=== PATIENT | female | born 1975 | race Caucasian/White ===

== ENCOUNTER → 2019-08-22 12:34 | Outpatient (BNVA) | payer MEDICAID, SELFPAY | PROVIDERS: Family Provider Family Medicine; PCP Family Medicine; Visit Provider Counselor Professional | DX: F33.1 Major depressive disorder, recurrent, moderate (principal); F41.1 Generalized anxiety disorder | CPT/HCPCS: 90834 ==

== ENCOUNTER → 2020-11-12 10:04 | Outpatient (BNVA) | payer MEDICAID, SELFPAY | PROVIDERS: Family Provider Family Medicine; PCP Family Medicine; Visit Provider Registered Nurse | DX: Z79.899 Other long term (current) drug therapy (principal) | CPT/HCPCS: 36415; 80061; 83036 ==

== ENCOUNTER 2020-12-29 21:45 | Emergency (ER) | payer MEDICAID, SELFPAY ==
[2020-12-29 22:06] VITALS: BP 147/90; PULSE 69; RESP 18; TEMP 37; O2SAT 97; BMI 47.0
--- NOTE | 2020-12-29 22:17 | XRR_ITS ---
PROCEDURE INFORMATION: Exam: XR Chest Exam date and time: 12/29/2020 10:17 PM Age: 45 years old Clinical indication: Cough and shortness of breath; Patient HX: Worsening cough and SOB. TECHNIQUE: Imaging protocol: XR of the chest. Views: 1 view. COMPARISON: No relevant prior studies available. FINDINGS: Lungs: Lungs are clear bilaterally. Pleural spaces: No pleural effusion. No pneumothorax. Heart/Mediastinum: The cardiac silhouette and mediastinal contours are unremarkable. Bones/joints: Unremarkable for age. XR/XR chest 1V portable [id number] IMPRESSION: No acute cardiopulmonary process.
[2020-12-29 22:30] VITALS: O2SAT 98
--- NOTE | 2020-12-29 22:48 | W.ED.COVID ---
HPI - COVID General: Chief Complaint: COVID symptoms Stated Complaint: FEELS LIKE NOT GETTING ENOUGH AIR, ASTHMA Time Seen by Provider: 12/29/20 22:17 Source: patient Mode of arrival: ambulatory Limitations: no limitations Triage information: Has fever, cough or shortness of breath. Exposure to COVID + person last 14 days History of Present Illness: HPI Narrative: 45-year-old female states over the last 2 to 3 days she has been having cough along with some body aches chills and low-grade fevers. States she also had a mild headache. She states she is concerned she may have Covid. Patient here is resting comfortably not requiring any oxygen. Denies any worsening improving factors. Said no vomiting or diarrhea. COVID 19 common symptoms: positive non-productive cough, dyspnea and body aches; negative fever(s), chills, headache(s), throat pain, nausea, vomiting or diarrhea COVID 19 other sytmptoms: negative chest pain COVID Results: SARS-CoV-2 Antigen (Rapid) Positive (Negative) H 12/29/20 23:35 12/29/20 Review of Systems Const: Reports: body aches; Denies: fever(s), chills or change in appetite Eyes: Denies: blurry vision or eye discomfort ENMT: Denies: throat pain or dental pain Card: Denies: chest pain Resp: Reports: dyspnea and non-productive cough GI: Denies: abdominal pain, nausea, vomiting or diarrhea : Denies: dysuria Musc: Denies: neck pain or back pain Skin/Breast: Denies: rash Neuro: Denies: headache(s) Psych: Denies: depression Ronaldo/Lymph: Denies: easy bruising All/Imm: Denies: urticaria [facility] PFSH: Medical History (Updated 12/30/20 @ 00:27 by Mona Wright MD) Excoriation (skin-picking) disorder Generalized anxiety disorder Major depressive disorder, recurrent, moderate Physical Exam Const: COMMON NORMALS: no acute distress, patient oriented x3 and healthy appearing HENMT: COMMON NORMALS: normocephalic and atraumatic HEAD & SCALP: normocephalic and atraumatic Eye: COMMON NORMALS: Equal, round and reactive pupils present and EOMs intact bilaterally PUPIL: Yes Equal, round and reactive pupils present Neck/C-Spine: COMMON NORMALS: full ROM and supple Chest: COMMONS NORMALS: normal inspection of the chest and normal palpation of entire chest wall Resp: COMMON NORMALS: normal respiratory effort, No retractions, No use of accessory muscles and clear to auscultation bilaterally AUSCULTATION: clear to auscultation bilaterally Cardio: COMMON NORMALS: regular rate, regular rhythm and No murmurs present (Cardio) RATE: regular rate RHYTHM: regular rhythm GI: COMMON NORMALS: Normal to inspection, nondistended, normoactive bowel sounds present, Soft to palpation, non-tender and no masses PALPATION: Yes Soft to palpation Extremity: COMMON NORMALS: normal to inspection and full ROM Neuro: COMMON NORMALS: patient oriented x3, moves all extremities and no focal motor deficits Psych: COMMON NORMALS: mental status grossly normal, Normal thought process present and cooperative THOUGHT PROCESS: Normal thought process present Skin: COMMON NORMALS: no rashes or lesions noted and no wounds GENERAL SKIN EXAM: no rashes or lesions noted Course Vital Signs: Vital signs: Vital Signs Temperature 98.6 F 12/29/20 22:06 Pulse Rate 69 12/29/20 22:06 Respiratory Rate 18 12/29/20 22:06 Blood Pressure 147/90 12/29/20 22:06 Pulse Oximetry 97 12/29/20 22:06 MDM - COVID MDM Narrative: Medical decision making narrative: Patient presents here with Covid. She is well-appearing here not requiring oxygen. Her lab work are all normal too. She is stable for discharge and is to follow-up PCP and return if any worsening symptoms. She understands agrees to plan. Lab Data: Labs: Lab Results 12/29/20 12/29/20 12/29/20 Range/Units 23:35 23:40 23:40 WBC 3.4 L (4.0-10.0) 10^3/ uL RBC 4.33 (4.1-5.3) 10^6/u L Hgb 13.3 (11.5-15.3) g/dL Hct 41.4 (37.0-47.0) % MCV 95.6 (81-99) fL MCH 30.7 (28.0-34.0) pg MCHC 32.1 (30.0-36.0) g/dL RDW 13.1 (12.1-15.1) % Plt Count 291 (130-400) 10^3/c mm MPV 8.7 (7.4-10.4) fL Neut % (Auto) 47.6 % Lymph % (Auto) 31.3 % [place] % (Auto) 20.2 % Eos % (Auto) 0.6 % Baso % (Auto) 0.3 % Neut # (Auto) 1.63 L (1.8-7.7) 10^3/u L Lymph # (Auto) 1.1 (0.8-4.8) 10^3/u L [place] # (Auto) 0.7 (0.2-0.9) 10^3/u L Eos # (Auto) 0.0 (0.0-0.8) 10^3/u L Baso # (Auto) 0.0 (0.0-0.1) 10^3/u L Nucleated RBC % (a uto) 0 % Nucleated RBCs # 0.0 /100WBC Sodium 139 (136-145) mmol/L Potassium 4.2 (3.5-5.1) mmol/L Chloride 106 (98-107) mmol/L Carbon Dioxide 25 (22-29) mmol/L Anion Gap 12.2 (5-19) BUN 9 (6-20) mg/dL Glucose 97 (65-115) mg/dL Calculated Osmolal ity 287 (285-295) mOsm/k g Total Bilirubin 0.2 (0.15-1.2) mg/dL AST 24 (0-32) U/L ALT 23 (0-33) U/L Albumin 3.6 (3.5-5.2) g/dL Globulin 2.3 (1.3-4.6) g/dL SARS-CoV-2 Ag (Rap id) Positive H (Negative) Imaging Data: CXR: Attestation: I personally reviewed and interpreted this imaging study as follows: My impression: no acute abnormality COVID Results: SARS-CoV-2 Antigen (Rapid) Positive (Negative) H 12/29/20 23:35 12/29/20 Discharge Plan Discharge Patient Disposition: Home Clinical Impression: COVID-19 Condition: Stable Prescriptions: No Action levothyroxine 25 mcg capsule 25 mcg PO .AM RF: 0 topiramate [Topamax] 50 mg tablet 50 mg PO BID RF: 0 meloxicam 7.5 mg tablet 15 mg PO DAILY RF: 0 All Day Allergy (cetirizine) 10 mg capsule 10 mg PO DAILY PRN (Reason: allergy symptoms) RF: 0 pantoprazole 40 mg tablet,delayed release (DR/EC) 40 mg PO DAILY RF: 0 metoprolol tartrate 25 mg tablet 25 mg PO BID RF: 0 hydroxyzine pamoate 25 mg capsule See Rx Instructions .ROUTE .COMPLEX Qty: 60 RF: 0 aripiprazole [Abilify] 5 mg tablet 5 mg PO DAILY Qty: 30 RF: 2 duloxetine [Cymbalta] 60 mg capsule,delayed release(DR/EC) 120 mg PO DAILY Qty: 60 RF: 2 lamotrigine [Lamictal] 150 mg tablet 150 mg PO BID Qty: 90 RF: 2 naltrexone 50 mg tablet 50 mg PO DAILY Qty: 30 RF: 3 trazodone 100 mg tablet 200 mg PO .bedtime Qty: 60 RF: 2 Discharge Orders: Discharge ED (Routine); Ordered 12/30/20 Ordered By: Mona Wright Referrals: Barrie Jean [Primary Care Provider] - Discharge Diet: Advance as tolerated Discharge Activity: Resume usual activity Patient Instructions: Upper Respiratory Infection (ED) Coding Level of Care Code ED Associate Principal for Tino Fwd Exam Comprehensive
[2020-12-30] LABS: Basophils % 0.3 %; Eosinophils % 0.6 %; Hematocrit 41.4 % (37.0-47.0); Hemoglobin 13.3 g/dL (11.5-15.3); Lymphocytes # 1.1 10^3/uL (0.8-4.8); Lymphocytes % 31.3 %; Mean Corpuscular HGB Conc 32.1 g/dL (30.0-36.0); Mean Corpuscular Hemoglobin 30.7 pg (28.0-34.0); Mean Corpuscular Volume 95.6 fL (81-99); Mean Platelet Volume 8.7 fL (7.4-10.4); Monocytes # 0.7 10^3/uL (0.2-0.9); Monocytes % 20.2 %; Neutrophils # 1.63 10^3/uL (1.8-7.7); Neutrophils % 47.6 %; Nucleated Red Blood Cells % 0 %; Platelet Count 291 10^3/cmm (130-400); Red Blood Count 4.33 10^6/uL (4.1-5.3); Red Cell Distribution Width 13.1 % (12.1-15.1); White Blood Count 3.4 10^3/uL (4.0-10.0)
[2020-12-30 00:19] LABS: SARS Covid-2 Antigen Positive (Negative)
[2020-12-30 00:22] LABS: Alanine Aminotransferase 23 U/L (0-33); Albumin Level 3.6 g/dL (3.5-5.2); Alkaline Phosphatase 108 IU/L (35-105); Anion Gap 12.2 (5-19); Aspartate Amino Transferase 24 U/L (0-32); Blood Urea Nitrogen 9 mg/dL (6-20); Calcium 8.3 mg/dL (8.5-10.5); Carbon Dioxide 25 mmol/L (22-29); Chloride 106 mmol/L (98-107); Globulin 2.3 g/dL (1.3-4.6); Glomerular Filtration Rate 60.5 mL/min (90-130); Glucose 97 mg/dL (65-115); Osmolality Calculated 287 mOsm/kg (285-295); Potassium 4.2 mmol/L (3.5-5.1); Sodium 139 mmol/L (136-145); Total Bilirubin 0.2 mg/dL (0.15-1.2); Total Protein 5.9 g/dL (6.6-8.7)
[2020-12-30 00:54] VITALS: BP 142/58; PULSE 64; RESP 17; TEMP 37; O2SAT 100
== END 2020-12-30 00:57 | disposition home or self-care (01) ==
PROVIDERS: Emergency Provider Emergency Medicine; PCP Physician Assistant Medical
DX: U07.1 COVID-19 (principal)
CPT/HCPCS: 71045; 80053; 85025; 87426; 99283

== ENCOUNTER → 2021-12-30 10:32 | Outpatient (BNVA) | payer MEDICAID, SELFPAY | PROVIDERS: PCP Physician Assistant Medical; Visit Provider Registered Nurse | DX: Z79.899 Other long term (current) drug therapy (principal) | CPT/HCPCS: 80053; 80061; 83036; 85025 ==

== ENCOUNTER → 2022-11-18 08:53 | Outpatient (BNVA) | payer MEDICAID, SELFPAY | PROVIDERS: PCP Physician Assistant; Visit Provider Registered Nurse | DX: Z79.899 Other long term (current) drug therapy (principal) | CPT/HCPCS: 80053; 80061; 82306; 82607; 83036; 83540; 84443; 85025 ==

== ENCOUNTER 2023-01-16 15:44 | Emergency (ER) | payer MEDICAID, SELFPAY ==
[2023-01-16 16:02] VITALS: BP 150/97; PULSE 84; RESP 16; TEMP 36.7; O2SAT 98; BMI 47.2
--- NOTE | 2023-01-16 16:17 | ED_ITS ---
Documented by User: Abran Kwok MD 01/29/23 23:21 HPI - General Adult General: Chief complaint: General Medical Stated complaint: High Blood Pressure Time Seen by Provider: 01/16/23 16:17 History of Present Illness: Ms. Alcazar is a 47-year-old lady with history of hypertension, psychiatric disorder presented to the emergency department for evaluation of generalized illness. She was riding a bike yesterday and noticed when she got back that her blood pressure was quite high. She has associated left posterior headache which is aching and throbbing in nature. At times she notes visual disturbance which is in both eyes regardless if 1 is open or closed. She feels slowed. Denies dizziness. Does have leg cramps and some shortness of breath as well as intermittent chest pain. Intensity symptoms moderate. Course has persisted. No other specific changes in health, exacerbating, or alleviating factors identified. Onset (ago): day(s) Severity: severe Review of Systems General: Reports: 10 or more systems reviewed and unremarkable except in HPI and below PFSH ED PFSH: Medical History (Updated 01/24/23 @ 00:01 by KARIN Dean) Excoriation (skin-picking) disorder Generalized anxiety disorder Major depressive disorder, recurrent, moderate Psychiatric care Physical Exam Const: COMMON NORMALS: patient oriented x3 and alert GENERAL APPEARANCE: cooperative and well developed HENMT: COMMON NORMALS: normocephalic and atraumatic HEAD & SCALP: normocephalic and atraumatic THROAT: posterior oropharynx normal Eye: COMMON NORMALS: conjunctivae normal CONJUNCTIVA: Yes conjunctivae nor mal SCLERA: sclerae normal Neck/C-Spine: COMMON NORMALS: supple GENERAL: Yes trachea midline Resp: COMMON NORMALS: normal respiratory effort EFFORT & INSPECTION: Yes able to speak in complete sentences Cardio: COMMON NORMALS: regular rate and regular rhythm RATE: regular rate RHYTHM: regular rhythm GI: COMMON NORMALS: Soft to palpation PALPATION: Yes Soft to palpation and No Tenderness to palpation present (GI) PERCUSSION: normal to percussion Extremity: GENERAL: Yes normal exam except as noted and No edema Neuro: COMMON NORMALS: patient oriented x3, CN's II-XII intact bilaterally, moves all extremities, no focal motor deficits and no sensory deficits noted SENSORIUM/ORIENTATION: Yes alert and No Orientation impaired Psych: COMMON NORMALS: mental status grossly normal and Normal thought process present THOUGHT PROCESS: Normal thought process present Course Vital Signs: Vital signs: Vital Signs Temperature 98.1 F 01/16/23 16:02 Pulse Rate 89 01/16/23 18:39 Respiratory Rate 16 01/16/23 18:39 Blood Pressure 150/99 01/16/23 18:39 Pulse Oximetry 100 01/16/23 18:39 Oxygen Delivery Me thod Room Air 01/16/23 16:02 MDM - General Adult Medical Decision Making 47-year-old lady presenting with generalized illness including high blood pressure and headaches as well as pain and shortness of breath. Exam as above. Mildly ill-appearing though nontoxic. No focal neurodeficits. Labs with mild leukopenia, mild dehydration on metabolic panel. CK is mildly elevated. Symptom treatment ordered. Handed off to Dr. Wright pending completion of ED evaluation. Patient presents here with headache along with some weakness her blood work here is normal after fluids she is wanting to leave I did speak to her recommend to check her chart and found that she states she feels much improved and needs to get home her vital signs here been normal patient discharged at this time. Lab Data 01/16/23 16:38 01/16/23 16:38 Laboratory Results WBC 3.2 10^3/uL (4.0-10.0) L 01/16/23 16:38 RBC 4.63 10^6/uL (4.1-5.3) 01/16/23 16:38 Hgb 14.1 g/dL (11.5-15.3) 01/16/23 16:38 Hct 43.1 % (37.0-47.0) 01/16/23 16:38 MCV 93.1 fl (81-99) 01/16/23 16:38 MCH 30.5 pg (28.0-34.0) 01/16/23 16:38 MCHC 32.7 g/dL (30.0-36.0) 01/16/23 16:38 RDW 12.7 % (12.1-15.1) 01/16/23 16:38 Plt Count 193 10^3/cmm (130-400) 01/16/23 16:38 MPV 8.5 fL (7.4-10.4) 01/16/23 16:38 Neut % (Auto) 73.3 % 01/16/23 16:38 Lymph % (Auto) 18.1 % 01/16/23 16:38 [place] % (Auto) 6.7 % 01/16/23 16:38 Eos % (Auto) 0.0 % 01/16/23 16:38 Baso % (Auto) 0.6 % 01/16/23 16:38 Neut # (Auto) 2.31 10^3/uL (1.8-7.7) 01/16/23 16:38 Lymph # (Auto) 0.6 10^3/uL (0.8-4.8) L 01/16/23 16:38 [place] # (Auto) 0.2 10^3/uL (0.2-0.9) 01/16/23 16:38 Eos # (Auto) 0.0 10^3/uL (0.0-0.8) 01/16/23 16:38 Baso # (Auto) 0.0 10^3/uL (0.0-0.1) 01/16/23 16:38 Nucleated RBC % (auto) 0 % 01/16/23 16:38 Nucleated RBCs # 0.0 /100WBC 01/16/23 16:38 Sodium 131 mmol/L (136-145) L 01/16/23 16:38 Potassium 3.9 mmol/L (3.5-5.1) 01/16/23 16:38 Chloride 97 mmol/L (98-107) L 01/16/23 16:38 Carbon Dioxide 23 mmol/L (22-29) 01/16/23 16:38 Anion Gap 14.9 (5-19) 01/16/23 16:38 BUN 11 mg/dL (6-20) 01/16/23 16:38 Creatinine 1.0 mg/dL (0.5-0.9) H 01/16/23 16:38 GFR Calculation 60.0 mL/min (90-130) L 01/16/23 16:38 Glucose 99 mg/dL (65-115) 01/16/23 16:38 Calculated Osmolality 271 mOsm/kg (285-295) L 01/16/23 16:38 Calcium 8.5 mg/dL (8.5-10.5) 01/16/23 16:38 Magnesium 2.0 mg/dL (1.7-2.3) 01/16/23 16:38 Total Bilirubin 0.7 mg/dL (0.15-1.2) 01/16/23 16:38 AST 33 U/L (0-32) H 01/16/23 16:38 ALT 39 U/L (0-33) H 01/16/23 16:38 Alkaline Phosphatase 116 U/L (35-105) H 01/16/23 16:38 Creatine Kinase 198 U/L (26-192) H 01/16/23 16:38 Troponin T Baseline 14 ng/L (0-10) H 01/16/23 16:38 NT-Pro-B Natriuret Pep 132 pg/mL (0-125) H 01/16/23 16:38 Total Protein 6.1 g/dL (6.6-8.7) L 01/16/23 16:38 Albumin 4.0 g/dL (3.5-5.2) 01/16/23 16:38 Globulin 2.1 g/dL (1.3-4.6) 01/16/23 16:38 TSH 4.04 uIU/mL (0.27-4.20) 01/16/23 16:38 HCG, Qual Negative (Negative) 01/16/23 16:15 Urine Color Yellow (Yellow) 01/16/23 16:15 Urine Appearance Clear (CLEAR) 01/16/23 16:15 Urine pH 5 (5-7) 01/16/23 16:15 Ur Specific [place] 1.005 (1.005-1.030) 01/16/23 16:15 Urine Protein Neg (Negative) 01/16/23 16:15 Urine Glucose (UA) Norm (Normal) 01/16/23 16:15 Urine Ketones Negative (Negative) 01/16/23 16:15 Urine Blood Neg (Negative) 01/16/23 16:15 Urine Nitrate Negative (Negative) 01/16/23 16:15 Urine Bilirubin Neg (Negative) 01/16/23 16:15 Urine Urobilinogen Norm mg/dL (Negative) 01/16/23 16:15 Ur Leukocyte Esterase Negative (Negative) 01/16/23 16:15 SARS-CoV-2 Ag (Rapid) negative (Negative) 01/16/23 17:12 Discharge Plan Discharge Patient Disposition: Home Clinical Impression: Headache, Chest pain, Shortness of breath Condition: Stable Prescriptions: No Action topiramate [Topamax] 50 mg tablet 50 mg PO BID Qty: 60 2RF levothyroxine 25 mcg capsule 25 mcg PO .AM meloxicam 7.5 mg tablet 15 mg PO DAILY All Day Allergy (cetirizine) 10 mg capsule 10 mg PO DAILY PRN (Reason: allergy symptoms) pantoprazole 40 mg tablet,delayed release (DR/EC) 40 mg PO DAILY metoprolol tartrate 25 mg tablet 25 mg PO BID valacyclovir [Valtrex] 1 gram tablet 2,000 mg PO .daily for two days PRN (Reason: For breakout) naltrexone 50 mg tablet 50 mg PO DAILY Qty: 30 3RF trazodone 100 mg tablet See Rx Instructions .ROUTE .COMPLEX Qty: 60 3RF Dose Instruction: TAKE 1 OR 2 TABLETS BY MOUTH AT BEDTIME NEEDED FOR INSOMNIA Rx Instructions: TAKE 1 OR 2 TABLETS BY MOUTH AT BEDTIME NEEDED FOR INSOMNIA aripiprazole 5 mg tablet See Rx Instructions .ROUTE .COMPLEX Qty: 30 3RF Dose Instruction: 1 TABLET BY MOUTH DAILY Rx Instructions: 1 TABLET BY MOUTH DAILY hydroxyzine pamoate 25 mg capsule See Rx Instructions .ROUTE .COMPLEX Qty: 60 3RF Dose Instruction: TAKE 1 CAPSULE BY MOUTH 3 TIMES A DAY NEEDED FOR ITCHING Rx Instructions: TAKE 1 CAPSULE BY MOUTH 2 TIMES A DAY NEEDED FOR ITCHING lamotrigine [Lamictal] 150 mg tablet 150 mg PO BID Qty: 60 0RF duloxetine 60 mg capsule,delayed release(DR/EC) See Rx Instructions .ROUTE .COMPLEX Qty: 60 0RF Dose Instruction: 2 CAPSULES BY MOUTH DAILY Rx Instructions: 2 CAPSULES BY MOUTH DAILY Discharge Orders: Discharge ED (Routine); Ordered 01/16/23 Ordered By: Mona Wright Referrals: Ashtyn Tapia PA-C [Primary Care Provider] - Discharge Diet: Usual diet Discharge Activity: Resume usual activity Patient Instructions: Acute Headache (ED) Activity Restrictions/Additional Instructions: Thank you for visiting the emergency department. You were seen evaluate for generalized illness including headache, chest pain, shortness of breath. The e xact cause of your symptoms is unclear however does not appear to need hospitalization at this time. Please follow-up with your primary care provider. Please ensure that you are staying hydrated. Return for any new neurologic symptoms or anything else that you are concerned about and feel needs emergency department evaluation. Coding Level of Care Code ED Breakfast Attendant for Tino Parker Documented by User: Mona Wright MD 01/16/23 18:41 HPI - General Adult General: Chief complaint: General Medical Stated complaint: High Blood Pressure Time Seen by Provider: 01/16/23 16:17 [facility] ED PFSH: Medical History (Updated 01/24/23 @ 00:01 by KARIN Dean) Excoriation (skin-picking) disorder Generalized anxiety disorder Major depressive disorder, recurrent, moderate Psychiatric care Course Vital Signs: Vital signs: Vital Signs Temperature 98.1 F 01/16/23 16:02 Pulse Rate 89 01/16/23 18:39 Respiratory Rate 16 01/16/23 18:39 Blood Pressure 150/99 01/16/23 18:39 Pulse Oximetry 100 01/16/23 18:39 Oxygen Delivery Me thod Room Air 01/16/23 16:02 MDM - General Adult Medical Decision Making Patient presents here with headache along with some weakness her blood work here is normal after fluids she is wanting to leave I did speak to her recommend to check her chart and found that she states she feels much improved and needs to get home her vital signs here been normal patient discharged at this time. Medical Records I reviewed the patient's medical records. Lab Data I reviewed the patient's lab results. 01/16/23 16:38 01/16/23 16:38 Laboratory Results WBC 3.2 10^3/uL (4.0-10.0) L 01/16/23 16:38 RBC 4.63 10^6/uL (4.1-5.3) 01/16/23 16:38 Hgb 14.1 g/dL (11.5-15.3) 01/16/23 16:38 Hct 43.1 % (37.0-47.0) 01/16/23 16:38 MCV 93.1 fl (81-99) 01/16/23 16:38 MCH 30.5 pg (28.0-34.0) 01/16/23 16:38 MCHC 32.7 g/dL (30.0-36.0) 01/16/23 16:38 RDW 12.7 % (12.1-15.1) 01/16/23 16:38 Plt Count 193 10^3/cmm (130-400) 01/16/23 16:38 MPV 8.5 fL (7.4-10.4) 01/16/23 16:38 Neut % (Auto) 73.3 % 01/16/23 16:38 Lymph % (Auto) 18.1 % 01/16/23 16:38 [place] % (Auto) 6.7 % 01/16/23 16:38 Eos % (Auto) 0.0 % 01/16/23 16:38 Baso % (Auto) 0.6 % 01/16/23 16:38 Neut # (Auto) 2.31 10^3/uL (1.8-7.7) 01/16/23 16:38 Lymph # (Auto) 0.6 10^3/uL (0.8-4.8) L 01/16/23 16:38 [place] # (Auto) 0.2 10^3/uL (0.2-0.9) 01/16/23 16:38 Eos # (Auto) 0.0 10^3/uL (0.0-0.8) 01/16/23 16:38 Baso # (Auto) 0.0 10^3/uL (0.0-0.1) 01/16/23 16:38 Nucleated RBC % (auto) 0 % 01/16/23 16:38 Nucleated RBCs # 0.0 /100WBC 01/16/23 16:38 Sodium 131 mmol/L (136-145) L 01/16/23 16:38 Potassium 3.9 mmol/L (3.5-5.1) 01/16/23 16:38 Chloride 97 mmol/L (98-107) L 01/16/23 16:38 Carbon Dioxide 23 mmol/L (22-29) 01/16/23 16:38 Anion Gap 14.9 (5-19) 01/16/23 16:38 BUN 11 mg/dL (6-20) 01/16/23 16:38 Creatinine 1.0 mg/dL (0.5-0.9) H 01/16/23 16:38 GFR Calculation 60.0 mL/min (90-130) L 01/16/23 16:38 Glucose 99 mg/dL (65-115) 01/16/23 16:38 Calculated Osmolality 271 mOsm/kg (285-295) L 01/16/23 16:38 Calcium 8.5 mg/dL (8.5-10.5) 01/16/23 16:38 Magnesium 2.0 mg/dL (1.7-2.3) 01/16/23 16:38 Total Bilirubin 0.7 mg/dL (0.15-1.2) 01/16/23 16:38 AST 33 U/L (0-32) H 01/16/23 16:38 ALT 39 U/L (0-33) H 01/16/23 16:38 Alkaline Phosphatase 116 U/L (35-105) H 01/16/23 16:38 Creatine Kinase 198 U/L (26-192) H 01/16/23 16:38 Troponin T Baseline 14 ng/L (0-10) H 01/16/23 16:38 NT-Pro-B Natriuret Pep 132 pg/mL (0-125) H 01/16/23 16:38 Total Protein 6.1 g/dL (6.6-8.7) L 01/16/23 16:38 Albumin 4.0 g/dL (3.5-5.2) 01/16/23 16:38 Globulin 2.1 g/dL (1.3-4.6) 01/16/23 16:38 TSH 4.04 uIU/mL (0.27-4.20) 01/16/23 16:38 HCG, Qual Negative (Negative) 01/16/23 16:15 Urine Color Yellow (Yellow) 01/16/23 16:15 Urine Appearance Clear (CLEAR) 01/16/23 16:15 Urine pH 5 (5-7) 01/16/23 16:15 Ur Specific [place] 1.005 (1.005-1.030) 01/16/23 16:15 Urine Protein Neg (Negative) 01/16/23 16:15 Urine Glucose (UA) Norm (Normal) 01/16/23 16:15 Urine Ketones Negative (Negative) 01/16/23 16:15 Urine Blood Neg (Negative) 01/16/23 16:15 Urine Nitrate Negative (Negative) 01/16/23 16:15 Urine Bilirubin Neg (Negative) 01/16/23 16:15 Urine Urobilinogen Norm mg/dL (Negative) 01/16/23 16:15 Ur Leukocyte Esterase Negative (Negative) 01/16/23 16:15 SARS-CoV-2 Ag (Rapid) negative (Negative) 01/16/23 17:12 Discharge Plan Discharge Patient Disposition: Home Clinical Impression: Headache, Chest pain, Shortness of breath Condition: Stable Prescriptions: No Action topiramate [Topamax] 50 mg tablet 50 mg PO BID Qty: 60 2RF levothyroxine 25 mcg capsule 25 mcg PO .AM meloxicam 7.5 mg tablet 15 mg PO DAILY All Day Allergy (cetirizine) 10 mg capsule 10 mg PO DAILY PRN (Reason: allergy symptoms) pantoprazole 40 mg tablet,delayed release (DR/EC) 40 mg PO DAILY metoprolol tartrate 25 mg tablet 25 mg PO BID valacyclovir [Valtrex] 1 gram tablet 2,000 mg PO .daily for two days PRN (Reason: For breakout) naltrexone 50 mg tablet 50 mg PO DAILY Qty: 30 3RF trazodone 100 mg tablet See Rx Instructions .ROUTE .COMPLEX Qty: 60 3RF Dose Instruction: TAKE 1 OR 2 TABLETS BY MOUTH AT BEDTIME NEEDED FOR INSOMNIA Rx Instructions: TAKE 1 OR 2 TABLETS BY MOUTH AT BEDTIME NEEDED FOR INSOMNIA aripiprazole 5 mg tablet See Rx Instructions .ROUTE .COMPLEX Qty: 30 3RF Dose Instruction: 1 TABLET BY MOUTH DAILY Rx Instructions: 1 TABLET BY MOUTH DAILY hydroxyzine pamoate 25 mg capsule See Rx Instructions .ROUTE .COMPLEX Qty: 60 3RF Dose Instruction: TAKE 1 CAPSULE BY MOUTH 3 TIMES A DAY NEEDED FOR ITCHING Rx Instructions: TAKE 1 CAPSULE BY MOUTH 2 TIMES A DAY NEEDED FOR ITCHING lamotrigine [Lamictal] 150 mg tablet 150 mg PO BID Qty: 60 0RF duloxetine 60 mg capsule,delayed release(DR/EC) See Rx Instructions .ROUTE .COMPLEX Qty: 60 0RF Dose Instruction: 2 CAPSULES BY MOUTH DAILY Rx Instructions: 2 CAPSULES BY MOUTH DAILY Discharge Orders: Discharge ED (Routine); Ordered 01/16/23 Ordered By: Mona Wright Referrals: Ashtyn Tapia PA-C [Primary Care Provider] - Discharge Diet: Usual diet Discharge Activity: Resume usual activity Patient Instructions: Acute Headache (ED) Activity Restrictions/Additional Instructions: Thank you for visiting the emergency department. You were seen evaluate for generalized illness including headache, chest pain, shortness of breath. The exact cause of your symptoms is unclear however does not appear to need hospitalization at this time. Please follow-up with your primary care provider. Please ensure that you are staying hydrated. Return for any new neurologic symptoms or anything else that you are concerned about and feel needs emergency department evaluation. Coding Level of Care Code ED Breakfast Attendant for Tino Parker
--- NOTE | 2023-01-16 16:47 | ECG_ITS ---
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 Measurements Intervals [place] Rate: 85 P: 34 ME: 201 QRS: -31 QRSD: 100 T: 7 QT: 347 QTc: 413 Interpretive Statements SINUS RHYTHM LEFT AXIS DEVIATION [QRS AXIS < -30] POSSIBLE ANTERIOR MYOCARDIAL INFARCTION , PROBABLY OLD [30 ms Q WAVE IN V3/V4, OR R < 0.2 mV IN V4] No previous ECG available for comparison Electronically Signed On 01-17-2023 21:16:50 CDT by Yasmeen Jaffe M.D. [id number]
[2023-01-16 16:48] VITALS: BP 143/92; PULSE 88; RESP 19; O2SAT 97
[2023-01-16 17:05] LABS: Basophils % 0.6 %; Hematocrit 43.1 % (37.0-47.0); Hemoglobin 14.1 g/dL (11.5-15.3); Lymphocytes # 0.6 10^3/uL (0.8-4.8); Lymphocytes % 18.1 %; Mean Corpuscular HGB Conc 32.7 g/dL (30.0-36.0); Mean Corpuscular Hemoglobin 30.5 pg (28.0-34.0); Mean Corpuscular Volume 93.1 fl (81-99); Mean Platelet Volume 8.5 fL (7.4-10.4); Monocytes # 0.2 10^3/uL (0.2-0.9); Monocytes % 6.7 %; Neutrophils # 2.31 10^3/uL (1.8-7.7); Neutrophils % 73.3 %; Nucleated Red Blood Cells % 0 %; Platelet Count 193 10^3/cmm (130-400); Red Blood Count 4.63 10^6/uL (4.1-5.3); Red Cell Distribution Width 12.7 % (12.1-15.1); White Blood Count 3.2 10^3/uL (4.0-10.0)
[2023-01-16] MEDS: sodium chloride 0.9% 1,000 ML 999 ML IV (17:06)
[2023-01-16 17:12] LABS: Add Urine Microscopic? NO; Charge for UA Resulting for Rev
[2023-01-16 17:16] LABS: Bilirubin Urine Neg (Negative); Blood Urine Neg (Negative); Glucose Urine UA Norm (Normal); Ketones Urine Negative (Negative); Leukocyte Esterase Urine Negative (Negative); Nitrate Urine Negative (Negative); Protein Urine Neg (Negative); Specific Gravity, Urine 1.005 (1.005-1.030); Urine Appearance Clear (CLEAR); Urine Color Yellow (Yellow); Urobilinogen Urine Norm (Negative); pH Urine 5 (5-7)
[2023-01-16 17:36] LABS: Troponin(5th) Baseline 14 ng/L (0-10)
[2023-01-16 17:40] VITALS: BP 140/81; PULSE 89; RESP 14; O2SAT 98
[2023-01-16 17:46] LABS: Alanine Aminotransferase 39 U/L (0-33); Alkaline Phosphatase 116 U/L (35-105); Anion Gap 14.9 (5-19); Aspartate Amino Transferase 33 U/L (0-32); Blood Urea Nitrogen 11 mg/dL (6-20); Calcium 8.5 mg/dL (8.5-10.5); Carbon Dioxide 23 mmol/L (22-29); Chloride 97 mmol/L (98-107); Creatine Phosphokinase 198 U/L (26-192); Globulin 2.1 g/dL (1.3-4.6); Glucose 99 mg/dL (65-115); NT Pro B Type Natriuretic Pept 132 pg/mL (0-125); Osmolality Calculated 271 mOsm/kg (285-295); Potassium 3.9 mmol/L (3.5-5.1); Sodium 131 mmol/L (136-145); Thyroid Stimulating Hormone 4.04 uIU/mL (0.27-4.20); Total Bilirubin 0.7 mg/dL (0.15-1.2); Total Protein 6.1 g/dL (6.6-8.7)
[2023-01-16 17:47] LABS: SARS Covid-2 Antigen negative (Negative)
[2023-01-16 18:12] LABS: HCG Qualitative Urine. Negative (Negative)
--- NOTE | 2023-01-16 18:19 | ECG_ITS ---
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 Measurements Intervals [place] Rate: 84 P: 39 DC: 199 QRS: -30 QRSD: 105 T: 9 QT: 369 QTc: 438 Interpretive Statements SINUS RHYTHM POSSIBLE ANTERIOR MYOCARDIAL INFARCTION , PROBABLY OLD [30 ms Q WAVE IN V3/V4, OR R < 0.2 mV IN V4] Compared to ECG 01/16/2023 16:47:29 Left-axis deviation no longer present Myocardial infarct finding still present Electronically Signed On 01-17-2023 21:35:40 CDT by Yasmeen Jaffe M.D. [id number]
[2023-01-16 18:39] VITALS: BP 150/99; PULSE 89; RESP 16; O2SAT 100
== END 2023-01-16 18:40 | disposition home or self-care (01) ==
PROVIDERS: Emergency Medicine; Emergency Provider Emergency Medicine; PCP Physician Assistant
DX: R51.9 Headache, unspecified (principal); R07.9 Chest pain, unspecified; R06.02 Shortness of breath; Z20.822 Contact with and (suspected) exposure to COVID-19
CPT/HCPCS: 36415; 80053; 81003; 81025; 82550; 83735; 83880; 84443; 84484; 85025; 87426; 93005; 99285; J7030

== ENCOUNTER → 2024-05-01 12:36 | Outpatient (BNVA) | payer OTHER, SELFPAY | PROVIDERS: PCP Physician Assistant; Visit Provider Psychiatry & Neurology Psychiatry | DX: F33.1 Major depressive disorder, recurrent, moderate (principal); Z79.899 Other long term (current) drug therapy | CPT/HCPCS: 80053; 80061; 83036; 84443; 85025 ==

== ENCOUNTER → 2024-07-10 08:30 | Outpatient (BNVA) | payer OTHER, SELFPAY | PROVIDERS: PCP Physician Assistant; Visit Provider Podiatrist Foot & Ankle Surgery | DX: M79.671 Pain in right foot (principal); M79.672 Pain in left foot; M21.612 Bunion of left foot; M21.611 Bunion of right foot; M21.622 Bunionette of left foot; M21.621 Bunionette of right foot; M20.41 Other hammer toe(s) (acquired), right foot; M20.42 Other hammer toe(s) (acquired), left foot | CPT/HCPCS: 73630 ==

== ENCOUNTER 2025-04-04 14:09 | Outpatient (CLI) | payer BC, MEDICAID, SELFPAY ==
--- NOTE | 2025-04-04 14:20 | MM_ITS ---
WS: [id number] BILATERAL 3D TOMOSYNTHESIS DIGITAL SCREENING MAMMOGRAPHY WITH CAD CLINICAL INFORMATION: SCREENING HISTORY: Screening mammogram. No current complaints. COMPARISON: Outside study 2022 TECHNIQUE: Bilateral CC and MLO views. FINDINGS: The breasts are composed of heterogeneous fibroglandular density tissue, which can limit the detection of small underlying mass lesions. New slightly spiculated asymmetric density outer LEFT breast measuring 7 mm. Recommend LEFT breast diagnostic mammography and ultrasound if persistent. Unremarkable RIGHT breast. MM/MM [facility] tomosynthesis [id number] IMPRESSION: DENSITY: The breasts are heterogeneously dense, which may obscure small masses. BI-RADS: 0 - Incomplete: Need additional imaging evaluation FOLLOW UP: Need Additional Imaging Recommend LEFT breast diagnostic mammography and ultrasound if persistent.
== END 2025-04-04 14:10 | disposition home or self-care (01) ==
LOC: MOBLMAM 14:15
PROVIDERS: PCP Nurse Practitioner Family; Visit Provider Nurse Practitioner Family
DX: Z12.31 Encounter for screening mammogram for malignant neoplasm of breast (principal); R92.333 Mammographic heterogeneous density, bilateral breasts; N64.89 Other specified disorders of breast
CPT/HCPCS: 77063; 77067

== ENCOUNTER 2025-05-02 08:21 | Outpatient (CLI) | payer BC, MEDICAID, SELFPAY ==
--- NOTE | 2025-05-02 08:29 | MM_ITS ---
WS: [id number] LEFT 3D TOMOSYNTHESIS DIGITAL MAMMOGRAPHY WITH CAD CLINICAL INFORMATION: ABNORMAL MAMMO HISTORY: Additional views COMPARISON: 04/04/2025 TECHNIQUE: 3 views of the left breast were obtained. FINDINGS: The left breast is composed of heterogeneous fibroglandular density tissue, which can limit the detection of small underlying mass lesions. Again seen is the asymmetric density outer LEFT breast measuring 7 mm. Ultrasound described below. ULTRASOUND BREAST LEFT TECHNIQUE: Ultrasound left breast focused area of concern. CLINICAL INFORMATION: ABNORMAL MAMMO FINDINGS: Ultrasound upper outer quadrant LEFT breast. 5.5 mm complex cyst at the 12 o'clock position 6 cm from the nipple. No other suspicious abnormalities. Recommend return to annual screening mammography. MM/MM diag LT tomosynthesis [id number] IMPRESSION: DENSITY: The breasts are heterogeneously dense, which may obscure small masses. BI-RADS: 2 - Benign FOLLOW UP: 1 Year Follow-up Recommend return to annual screening mammography.
== END 2025-05-02 08:22 | disposition home or self-care (01) ==
PROVIDERS: PCP Nurse Practitioner Family; Visit Provider Nurse Practitioner Family
DX: R92.8 Other abnormal and inconclusive findings on diagnostic imaging of breast (principal); N63.20 Unspecified lump in the left breast, unspecified quadrant; R92.332 Mammographic heterogeneous density, left breast; R92.322 Mammographic fibroglandular density, left breast
CPT/HCPCS: 76642; 77061; 77063

== ENCOUNTER 2025-05-20 09:18 | Outpatient (CLI) | payer BC, MEDICAID, SELFPAY ==
--- NOTE | 2025-05-20 09:30 | XRR_ITS ---
PROCEDURE INFORMATION: Exam: XR Bilateral Hips Exam date and time: 05/20/2025 9:47 AM Age: 50 years old Clinical indication: Hip pain; HX of degenerative disc disease, left hip and back pain since January; Additional info: Joint disorder/lumbago w/sciatica TECHNIQUE: Imaging protocol: Radiologic exam of the bilateral hips. Views: 2 views of hips with pelvis when performed. COMPARISON: CR XR lumbar spine 2-3V* [id number] 05/20/2025 9:47 AM FINDINGS: Bones/joints: No acute fracture or dislocation. No infiltrative or aggressive osseous lesions. Joint spaces are preserved. Soft tissues: Unremarkable. XR/XR hip BI 3-4V wo/w pel [id number] IMPRESSION: No acute fracture or dislocation.
--- NOTE | 2025-05-20 09:30 | XRR_ITS ---
PROCEDURE INFORMATION: Exam: XR Lumbosacral Spine Exam date and time: 05/20/2025 9:47 AM Age: 50 years old Clinical indication: Lumbago with sciatica; HX of degenerative disc disease, left hip and back pain since January; Additional info: Lumbago w/sciatica TECHNIQUE: Imaging protocol: Radiologic exam of the lumbosacral spine. Views: 2 or 3 views. COMPARISON: CR XR hip BI 3-4V wo/w pel [id number] 05/20/2025 9:47 AM FINDINGS: Bones/joints: No acute fracture or dislocation. No infiltrative or aggressive osseous lesions. There is anterior degenerative marginal osteophytosis at L5-S1. Soft tissues: Unremarkable. XR/XR lumbar spine 2-3V* [id number] IMPRESSION: 1. No acute fracture or traumatic subluxation. 2. Degenerative spondylosis as above.
== END 2025-05-20 09:19 | disposition home or self-care (01) ==
PROVIDERS: PCP Nurse Practitioner Family; Visit Provider Nurse Practitioner Family
DX: M51.370 Other intervertebral disc degeneration, lumbosacral region with discogenic back pain only (principal); M25.78 Osteophyte, vertebrae; M25.551 Pain in right hip; M25.552 Pain in left hip
CPT/HCPCS: 72100; 73522